=== PATIENT | male | born 1990 | race Caucasian/White ===

== ENCOUNTER 2024-04-29 11:31 | Emergency (ER) | payer OTHER, SELFPAY ==
[2024-04-29 11:32] VITALS: BP 157/96; PULSE 70; RESP 18; TEMP 36.7; O2SAT 97; BMI 25.1
--- NOTE | 2024-04-29 11:32 | ECG_ITS ---
APPROVED REPORT Exam: Resting ECG HR:72 bpm ECG Measurements Heart Rate 72 AXES FL 140 P 65 QRSd 90 QRS 56 QT 374 T 37 QTc 398 Conclusion SINUS RHYTHM WITH SINUS ARRHYTHMIA NORMAL ECG Electronically signed by : LEE CANTU, 04/29/2024 15:52:53
[2024-04-29 11:37] VITALS: BMI 25.1
--- NOTE | 2024-04-29 11:38 | XR_ITS ---
FINAL REPORT CLINICAL HISTORY: Precordial chest pain COMPARISON: None FINDINGS: Two views of the chest were obtained. The heart size and pulmonary vascularity are within normal limits. The mediastinum is normal. No acute pulmonary abnormality is identified. There is no pneumothorax. The bony thorax is intact. IMPRESSION: No active cardiopulmonary disease. Reviewed, Interpreted and Dictated by Ian Zamora III, MD Transcribed by Kiera Villatoro Authenticated and [facility]
--- NOTE | 2024-04-29 11:43 | PC.NURSE ---
Dr. Rojas at BS for pt eval
--- NOTE | 2024-04-29 11:43 | PC.NURSE ---
DR CANTU AT BEDSIDE
--- NOTE | 2024-04-29 11:48 | HMH.EDCP ---
Discharge Plan Disposition Patient Disposition: Home, Self-Care Prescriptions Prescriptions: New metoprolol succinate 25 mg tablet extended release 24 hr 25 mg PO DAILY Qty: 30 0RF omeprazole 20 mg capsule,delayed release(DR/EC) 20 mg PO DAILY Qty: 14 0RF Referrals Follow up/Referrals: Provider,Referral, [Primary Care Provider] - See instructions Activity Restrictions/Add. Instructions Additional Instructions/Restrictions: You were evaluated in the ER and are appropriate for discharge at this time. Wear the Holter monitor and follow-up with cardiology as directed. Take the newly prescribed medications as directed. Return to the ER with new, worsening, or otherwise concerning symptoms. Clinical Impressions Clinical Impression: Chest pain Qualifiers: Chest pain type: precordial pain Qualified Code(s): R07.2 - Precordial pain Print Language Print Language: Nauruan Discharge ED Provider: Yandel Rojas General Chief Complaint: Chest Pain Stated Complaint: Chest Pain Time Seen by Provider: 04/29/24 11:40 Mode of Arrival: Ambulatory Source of Information: Patient Limitations: No Limitations Description of Symptoms (Recalled from ER Triage Doc. by RN): PT REPORTS CHEST PAIN THAT WOKE HIM AT 0400 THIS AM. LEFT SIDED CHEST PAIN THAT RADIATES TO NECK AND ARM. DULL ACHE RATES PAIN 5/10. History of Present Illness HPI narrative: 33-year-old male who reports he had a fast heart rate as a child for which she had to see a vascular radiologist presents to the ER for chest pain since 4 AM. Patient reports a burning sensation chest pain in the left side of the chest directly over the left breast/left lateral breast. This pain is worsened by movement of the left arm and by laying on the left side. He states it hurts worse when he takes a deep breath or when he is active. He reports more pain with deep inspiration. 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 Patient reports he was supposed to follow-up with cardiology for similar symptoms, however they moved to [place] and he never made it to the appointment in [place]. Patient does have a strong family cardiac history with his father having first heart attack in his mid 30s. No fevers, chills, dizziness, nausea, vomiting, diarrhea, abdominal pain, or other ill symptoms Related Data Previous Rx's ?Medication ?Instructions ?Recorded metoprolol succinate 25 mg 25 mg PO DAILY #30 tabs 04/29/24 tablet,extended release 24 hr omeprazole 20 mg capsule,delayed 20 mg PO DAILY #14 caps 04/29/24 release Allergies Allergy/AdvReac Type Severity Reaction Status Date / Time acetaminophen [From Percocet] Allergy Verified 04/29/24 11:35 morphine Allergy Verified 04/29/24 11:35 oxycodone [From Percocet] Allergy Ver[facility] 04/29/24 [facility] Disclaimer: The information contained in this section may have been updated after the patient was seen, as this information can be updated by other users. Social History (Updated 04/29/24 @ 13:36 by ARUN Dyer) Smoking Status: Former smoker alcohol intake: current current occupational status: employed Travel in the last 8 weeks: Inside the [place] ROS Obtained: Yes All systems reviewed & no additional complaints except as documented Positive ROS per HPI Physical Exam General General appearance: alert and in no apparent distress Head Head exam: atraumatic and normocephalic Eye Eye exam: Present PERRL and EOMI ENT ENT exam: Present mucous membranes moist Neck Neck exam: Present normal inspection and full ROM Chest Chest inspection: Present symmetric chest wall rise and tenderness (Mild tenderness over the left chest where patient is primarily complaining of pain, no deformity or findings of trauma) Respiratory Respiratory exam: Present normal lung sounds bilaterally; Absent respiratory distress, wheezes or stridor Cardiovascular Cardiovascular exam: Present regular rate and normal rhythm Abdominal Exam Abdominal exam: Present soft; Absent distention or tenderness Extremities Exam Extremities exam: Present full ROM; Absent edema Neurological Exam Neurological exam: Present alert and oriented X3; Absent motor sensory deficit Psychiatric Psychiatric exam: Present normal affect and normal mood Skin Skin exam: Present warm and dry HEART Score HEART Score HEART Score assessment performed?: Yes History (anamnesis): Slightly suspicious ECG: Non-specific disturbance Age: <45 years Risk factors: 1-2 risk factors Troponin: </= normal limit HEART Score: 2 Critical Care Critical Care Time Critical Care Time: No Medical Decision Making Dashawn Inquiry Pt receiving controlled substance: No Vital Signs Vital Signs: 04/29/24 11:32 04/29/24 12:00 04/29/24 12:30 Temperature 98.0 F Temperature Source Oral Pulse Rate 66 75 Pulse Rate [Apical] 70 Respiratory Rate 18 17 14 Blood Pressure 129/76 137/92 H Blood Pressure [Right Arm] 157/96 H Blood Pressure Mean [Right Arm] 116 Blood Pressure Source Blood Pressure Source [Right Arm] Automatic Cuff Blood Pressure Position Blood Pressure Position [Right Arm] Sitting 02 Sat by Pulse Oximetry 97 98 95 Oxygen Delivery Method Room Air Room Air Room Air 04/29/24 13:00 04/29/24 14:30 Temperature 98.0 F Temperature Source Oral Pulse Rate 70 56 L Pulse Rate [Apical] Respiratory Rate 14 15 Blood Pressure 132/94 H 124/82 Blood Pressure [Right Arm] Blood Pressure Mean [Right Arm] Blood Pressure Source Automatic Cuff Blood Pressure Source [Right Arm] Blood Pressure Position Sitting Blood Pressure Position [Right Arm] 02 Sat by Pulse Oximetry 98 Oxygen Delivery Method Room Air Room Air Lab Data Labs: Lab Results 04/29/24 11:36: WBC 7.0, RBC 5.27, Hgb 15.1, Hct 46.2, MCV 87.6, MCH 28.6, MCHC 32.6, RDW 13.1, Plt Count 372, MPV 7.7, Neut % (Auto) 59.7, Lymph % (Auto) 30.9, [place] % (Auto) 6.1, Eos % (Auto) 2.1, Baso % (Auto) 1.2, Neut # (Auto) 4.2, Lymph # (Auto) 2.2, [place] # (Auto) 0.4, Eos # (Auto) 0.2, Baso # (Auto) 0.1, D-Dimer 0.36, Sodium 140, Potassium 3.6, Chloride 105, Carbon Dioxide 29, Anion Gap 9.6, BUN 9, Creatinine 1.20, Estimated Creat Clear 97, Estimated GFR 71, Est GFR ( Amer) 85, Glucose 104 H, Calcium 9.4, Total Bilirubin 1.1, AST 30, ALT 22, Alkaline Phosphatase 76, Troponin I < 0.01, Total Protein 7.9, Albumin 4.3, Globulin 3.6 H, Albumin/Globulin Ratio 1.2 04/29/24 11:36 04/29/24 11:36 Response Orders (Tests/Meds): ED MEDICATIONS Discontinued Medications Generic Name Dose Route Start Last Admin Trade Name Freq PRN Reason Stop Dose Admin Belladonna Alkaloids 60 ml 04/29/24 12:51 04/29/24 12:56 Belladonna Alkaloids 60 Ml Ml PO 04/29/24 12:52 60 ml ONCE ONE Administration Ketorolac Tromethamine 15 mg 04/29/24 12:51 04/29/24 12:57 Ketorolac 30mg/Ml Vial IV 04/29/24 12:52 15 mg ONCE ONE Administration Sodium Chloride 10 ml 04/29/24 11:39 Sodium Chloride 0.9% 10ml Flush Syringe IV 05/29/24 11:38 NEEDED PRN Maintain IV Site ORDERS Category Date Time Status CXR 2 view (NOT portable) [XR chest 2V] Stat Exams 04/29/24 11:38 Completed Complete Blood Count Auto Diff Stat Lab 04/29/24 11:36 Completed Comprehensive Metabolic Panel Stat Lab 04/29/24 11:36 Completed D-Dimer Stat Lab 04/29/24 11:36 Completed Troponin I Stat Lab 04/29/24 11:36 Completed CA echo doppler complete Stat Y 04/29/24 13:08 Completed ECG holter initial pfn Stat Y 04/29/24 13:08 Completed MDM Narrative Medical Decision Narrative: In summary, this 33-year-old male presents to the emergency department today with burning left-sided chest pain worse with deep inspiration, movement of the left arm, or laying on that side. On initial evaluation patient is hemodynamically stable, afebrile, chest pain is reproducible to an extent with palpation as well as with movement of the left arm. There are no findings of traumatic injury, cardiopulmonary exam is reassuring, no peripheral edema, remainder of exam benign. Differential diagnosis includes but is not limited to ACS, PE, pneumothorax, musculoskeletal pain. Based on these concerns, I ordered cardiac workup, chest x-ray, D-dimer. ECG personally interpreted demonstrates sinus rhythm with sinus arrhythmia, rate 72, normal SD and QTc, normal axis, no STEMI. Labs personally reviewed demonstrate normal CBC, CMP nonactionable, initial troponin undetectably low at less than 0.01 reassuring in the setting of low heart score and the duration of symptoms, D-dimer negative. Chest x-ray personally interpreted does not demonstrate acute intrathoracic abnormality, see radiology read for final interpretation. Patient continues to be stable in the ER but continues to have pain. He received Toradol and GI cocktail. I discussed this case with cardiology since patient has a strong family history of cardiac abnormality and reported an abnormality in childhood. I have low suspicion for cardiac etiology of his pain, however with these historical factors I believe evaluation in the ER is warranted. Dez Giordano with cardiology evaluated the patient and is recommending echo that only needs a preliminary read prior to discharge, he also recommends metoprolol, omeprazole, Holter monitor, outpatient follow-up. Echo was performed and demonstrates EF 50 to 55% with mild mitral valve and tricuspid valve regurgitation. Patient was prescribed metoprolol and omeprazole at the recommendation of cardiology. Holter monitor applied. He is scheduled for follow-up with them. Patient was given instructions on symptomatic management, follow up instructions, and return precautions for the emergency department. Patient indicated understanding and was discharged in stable condition.
[2024-04-29 11:49] LABS: Basophils # 0.1 K/mm3 (0-0.2); Basophils % 1.2 % (0.1-2.0); Eosinophils # 0.2 K/mm3 (0.0-0.4); Eosinophils % 2.1 % (0.1-12.0); Hematocrit 46.2 % (42.0-52.0); Hemoglobin 15.1 g/dL (14.1-18.0); Lymphocytes # 2.2 K/mm3 (0.7-4.5); Lymphocytes % 30.9 % (10-50); Mean Corpuscular HGB Conc 32.6 g/dL (31.8-35.4); Mean Corpuscular Hemoglobin 28.6 pg (27.0-31.2); Mean Corpuscular Volume 87.6 fl (80-94); Mean Platelet Volume 7.7 fl (7.4-10.4); Monocytes # 0.4 K/mm3 (0.1-1.0); Monocytes % 6.1 % (1.7-9.3); Neutrophils # 4.2 K/mm3 (1.8-7.8); Neutrophils % 59.7 % (37.0-80.0); Platelet Count 372 K/mm3 (142-424); Red Blood Count 5.27 M/mm3 (4.60-6.20); Red Cell Distribution Width 13.1 % (11.5-17.5)
[2024-04-29 11:59] LABS: Alanine Aminotransferase 22 U/L (12-78); Albumin Level 4.3 g/dl (3.5-5.0); Albumin/Globulin Ratio 1.2 (1.1-1.8); Alkaline Phosphatase 76 U/L (38-126); Anion Gap 9.6 mEq/L (5-15); Aspartate Amino Transferase 30 U/L (17-59); Bilirubin,Total 1.1 mg/dl (0.2-1.3); Blood Urea Nitrogen 9 mg/dl (9-20); Calcium 9.4 mg/dl (8.4-10.2); Carbon Dioxide 29 mmol/L (22.0-30.0); Chloride 105 mmol/L (98-107); Creatinine Clearance Estimated 97 mL/min (50-200); Estimated Glomerular Filt Rate 71 ml/min (>60); GFR (African American) 85 ML/MIN (>60); Globulin 3.6 g/dL (1.3-3.2); Glucose 104 mg/dl (74-100); Potassium 3.6 mmoL/L (3.5-5.1); Sodium 140 mmol/L (136-145); Total Protein,Serum 7.9 g/dl (6.3-8.2)
[2024-04-29 12:00] VITALS: BP 129/76; PULSE 66; RESP 17; O2SAT 98
[2024-04-29 12:04] LABS: D-Dimer 0.36 ug/mL (0.0-0.5)
[2024-04-29 12:13] LABS: Troponin I < 0.01 ng/ml (0.00-0.034)
--- NOTE | 2024-04-29 12:21 | PC.NURSE ---
Pt gone to RAD via wheelchair
--- NOTE | 2024-04-29 12:24 | PC.NURSE ---
Pt returned from RAD
[2024-04-29 12:30] VITALS: BP 137/92; PULSE 75; RESP 14; O2SAT 95
--- NOTE | 2024-04-29 12:51 | PC.NURSE ---
pt states his pain has increased to an 8/. I notified Dr. Rojas
--- NOTE | 2024-04-29 12:52 | PC.NURSE ---
ARUN Nicole at BS for pt khoa
[2024-04-29] MEDS: BELLADONNA ALKALOIDS 60 ML ML PO (12:56)
[2024-04-29] MEDS: KETOROLAC 30MG/ML VIAL 15 MG IV (12:57)
[2024-04-29 13:00] VITALS: BP 132/94; PULSE 70; RESP 14; O2SAT 98
--- NOTE | 2024-04-29 13:08 | CA_ITS ---
APPROVED REPORT EXAM: Comprehensive 2D, Doppler, and color-flow Echocardiogram Dolphin Researcher: Ninfa Gardiner RT(R) Ht: 5 ft 9 in Wt: 170lbs BSA: 1.93 BP: 137/92 mmHg Indications: CP, SOB, hx asthma, family history of CAD at young age 2D Dimensions LA Volume 17.80 mL LA Volume Index 9.22 mL/m2 (M/F) 16-34 EF AP4 51.50 % GL Strain -17.9 % M-Mode Dimensions RVDd 3.37 cm (0.9-2.6) LA Diam 3.43 cm (1.9-4.0) LVDd 4.34 cm (3.5-5.7) LVDs 3.17 cm (3.5-5.7) IVSd 0.84 cm (0.6-1.1) PWd 0.76 cm (0.6-1.1) EF (Teich) 52.90% FS 27.00% EDV (Teich) 84.90 mL TAPSE 2.29 (<1.7) ESV (Teich) 40.00 mL LV Diastology E Decel Time 277 (160-240 msec) E/A Ratio 1.28 Mitral Valve MV A Velocity 53.0 (40-130 cm/s) E/A Ratio 1.28 Tricuspid Valve TR P. Velocity 225.00 cm/s RAP Estimate 10.00 mmHg RVSP 30.20 mmHg Left Ventricle The left ventricle is normal size. The left ventricular systolic function is normal. The left ventricular ejection fraction is within the normal range. There is normal left ventricular wall thickness. There is normal LV segmental wall motion. The left ventricular diastolic function is normal. LVEF is 60%. Right Ventricle The right ventricle is normal size. The right ventricular systolic function is normal. Atria The left atrium size is normal. The right atrium size is normal. There is no Doppler evidence of interatrial shunt. Aortic Valve The aortic valve opens well. There is no aortic valvular stenosis. No aortic regurgitation is present. Mitral Valve The mitral valve is normal in structure. No evidence of mitral valve stenosis. There is no mitral valve regurgitation noted. Tricuspid Valve The tricuspid valve leaflets are thin and pliable. Mild tricuspid regurgitation. RVSP is 20-25 mmHg. Pulmonic Valve The pulmonary valve is normal in structure. Trace pulmonic regurgitation. Great Vessels The aortic root is normal in size. The ascending aorta is normal in size. IVC is normal in size and collapses >50% with inspiration. Pericardium There is no pericardial effusion. Other Information Study Quality: Adequate Conclusion Normal biventricular systolic function. Mild TR. Electronically signed by : Ofelia Burris MD 04/30/2024 03:14:04
--- NOTE | 2024-04-29 13:09 | PC.NURSE ---
Called RT for echo and holter monitor
--- NOTE | 2024-04-29 13:14 | PC.NURSE ---
VASCULAR NOTIFIED OF ECHO
--- NOTE | 2024-04-29 13:25 | PC.NURSE ---
vascular at BS for echo
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
--- NOTE | 2024-04-29 13:47 | PC.NURSE ---
RESPIRATORY NOTIFIED OF HOLTER ORDER
--- NOTE | 2024-04-29 14:01 | PC.NURSE ---
HOLTER PLACED AT THIS TIME PER RESPIRATORY
[2024-04-29 14:30] VITALS: BP 124/82; PULSE 56; RESP 15; TEMP 36.7; O2SAT 95
== END 2024-04-29 14:31 | disposition home or self-care (01) ==
PROVIDERS: Emergency Provider Emergency Medicine
DX: R07.2 Precordial pain (principal); R03.0 Elevated blood-pressure reading, without diagnosis of hypertension; K21.9 Gastro-esophageal reflux disease without esophagitis; Z82.49 Family history of ischemic heart disease and other diseases of the circulatory system
CPT/HCPCS: 71046; 80053; 84484; 85025; 85378; 93005; 93225; 93227; 93306; 96374; 99285; J1885

== ENCOUNTER 2024-06-29 07:58 | Emergency (ER) | payer OTHER, SELFPAY ==
[2024-06-29 07:59] VITALS: BP 136/100; PULSE 67; RESP 18; TEMP 36.9; O2SAT 99; BMI 25.1
--- NOTE | 2024-06-29 08:15 | XR_ITS ---
FINAL REPORT CLINICAL HISTORY: crush injury, maximally in index finger COMPARISON: None FINDINGS: RIGHT HAND Three views demonstrate no acute fracture or dislocation. The visualized joint spaces are normally aligned. The soft tissues are unremarkable. IMPRESSION: No acute bony abnormality. Reviewed, Interpreted and Dictated by Clinton Blanton MD Transcribed by Liliya Sahni Authenticated and [facility]
--- NOTE | 2024-06-29 08:16 | ED_ITS ---
Discharge Plan Disposition Patient Disposition: Home, Self-Care Prescriptions Prescriptions: No Action ibuprofen 800 mg tablet 800 mg PO PRN Patient Comments: TAKE 1 TABLET BY MOUTH EVERY 8 HOURS NEEDED FOR PAIN metoprolol succinate 25 mg tablet extended release 24 hr 25 mg PO DAILY Qty: 30 0RF omeprazole 20 mg capsule,delayed release(DR/EC) 20 mg PO DAILY Qty: 14 0RF Referrals Follow up/Referrals: Abdirizak Ramos DO [Staff Physician] - See instructions Provider,Referral, [Primary Care Provider] - See instructions Activity Restrictions/Add. Instructions Additional Instructions/Restrictions: No evidence of fracture or dislocation on your x-ray. Wear your brace only as needed for comfort. You may take Tylenol and ibuprofen and ice the area and if you continue to have severe discomfort after 1 to 2 weeks you may follow-up with her orthopedic surgeon Dr. Ramos. Clinical Impressions Clinical Impression: Crush injury of hand, Subungual hematoma of finger of right hand Print Language Print Language: Albanian Discharge ED Provider: Nora Liz General Adult HPI General Chief complaint: Extremity Injury, Upper Stated complaint: right hand and arm pain Time Seen by Provider: 06/29/24 08:11 Mode of Arrival: Ambulatory Source of Information: Patient Limitations: No Limitations Description of Symptoms (Recalled from ER Triage Doc. by RN): r hand pain. History of Present Illness HPI narrative: 33-year-old male presents today with a right hand injury. Was working on his car running a wire when he accidentally crushed his hand under a bar in his vehicle. The majority of the injury was in the right index finger but he had pain over the interphalangeal joints over the second third and fourth digits. Also had some swelling and discoloration under the nail of the right index finger. Took some ibuprofen and Tylenol yesterday evening and today. Has pulsating pain in the distal aspect of his right finger. Related Data Home Medications ?Medication ?Instructions ?Recorded ?Confirmed ibuprofen 800 mg tablet 800 mg PO PRN 06/02/24 06/02/24 Previous Rx's ?Medication ?Instructions ?Recorded metoprolol succinate 25 mg 25 mg PO DAILY #30 tabs 04/29/24 tablet,extended release 24 hr omeprazole 20 mg capsule,delayed 20 mg PO DAILY #14 caps 04/29/24 release Allergies Allergy/AdvReac Type Severity Reaction Status Date / Time acetaminophen [From Percocet] Allergy Verified 06/02/24 11:38 morphine Allergy Verified 06/02/24 11:38 oxycodone [From Percocet] Allergy Verified 06/02/24 11:38 [facility] Disclaimer: The information contained in this section may have been updated after the patient was seen, as this information can be updated by other users. Surgical History History of cholecystectomy Social History Smoking Status: Never smoker alcohol intake: current current occupational status: employed Travel in the last 8 weeks: Inside the [place] ROS Obtained: Yes All systems reviewed & no additional complaints except as documented Physical Exam General General appearance: alert and in no apparent distress Respiratory Respiratory exam: Present normal lung sounds bilaterally Cardiovascular Cardiovascular exam: Present regular rate Extremities Exam Extremities exam: Present other (Patient has tenderness and swelling particular in the right index finger and a subungual hematoma occupying about 33% of the right index finger nail has normal flexion and extension and sensation ) Neurological Exam Neurological exam: Present alert and oriented X3 Medical Decision Making Medical Records Screening: Per USPSTF and CDC recommendations, given the prevalence of disease in our region, it is our hospital?s policy to screen for HIV and viral Hepatitis for all patients aged 18 and over and those with ongoing risk factors. [place] Inquiry Pt receiving controlled substance: No Vital Signs: 06/29/24 07:59 Temperature 98.4 F Temperature Source Oral Pulse Rate [Right] 67 Respiratory Rate 18 Blood Pressure [Right Arm] 136/100 H Blood Pressure Mean [Right Arm] 112 02 Sat by Pulse Oximetry 99 Oxygen Delivery Method Room Air Orders (Tests/Meds): ORDERS Category Date Time Status Hand XR right minimum 3 views [XR hand RT min 3V] Stat Exams 06/29/24 08:15 Taken HIV (1&2) Antibody Rapid Stat Lab 06/29/24 08:07 Ordered Hep C Ab with Reflex to RNA Stat Lab 06/29/24 08:07 Ordered Medical Decision Narrative: 33-year-old with above history and physical. primarily has significant pain and swelling over the right index finger and a subungual hematoma. Does have significant pulsating pressure under that nail I have offered him evacuation of the subungual hematoma which we will likely do. X-ray is pending to rule out fracture dislocation. Reassessment 844 x-ray performed which I personally interpreted which shows no fractures or dislocations nail was successfully trephinated and he did have significant pressure relief and Band-Aid was applied as well as a brace for comfort return precautions emphasized and follow-up instructions with orthopedic surgery if he is not improving in 1 to 2 weeks. Procedures Miscellaneous Procedure Procedure Performed: Nail trephination Indication pain associated with subungual hematoma Nail was successfully trephinated with 18-gauge needle and electrocautery device no complications Critical Care Critical Care Time Critical Care Time: No
[2024-06-29 08:54] VITALS: BP 136/90; PULSE 71; RESP 18; TEMP 36.7; O2SAT 99
== END 2024-06-29 08:55 | disposition home or self-care (01) ==
PROVIDERS: Emergency Provider Student in an Organized Health Care Education/Training Program
DX: S60.131A Contusion of right middle finger with damage to nail, initial encounter (principal); W23.0XXA Caught, crushed, jammed, or pinched between moving objects, initial encounter
CPT/HCPCS: 11740; 73130; 99283